=== PATIENT | female | born 1985 | race Caucasian/White ===

== ENCOUNTER 2018-12-12 09:49 | Inpatient (IN) ==
[2018-12-12] MEDS ORDERED: CITRIC ACID/SODIUM CITRATE 30 ML UDCUP PO ONE (11:08)
[2018-12-12] MEDS ORDERED: ceFAZolin 2,000 MG in PREMIX 1 EACH IV ONE (11:08)
[2018-12-12] MEDS ORDERED: OXYTOCIN 10 UNIT/ML VIAL IM ONE (11:10)
[2018-12-12] MEDS ORDERED: OXYTOCIN/LR 30 UNIT/1,000 ML BAG IV ONE (11:11)
[2018-12-12] MEDS ORDERED: FAMOTIDINE 20 MG/2 ML VIAL IV ONE (11:17)
[2018-12-12] MEDS ORDERED: diphenhydrAMINE 50 MG/1 ML VIAL IV PRN (11:17)
[2018-12-12] MEDS ORDERED: hydrOXYzine HCL 25 MG/1 ML VIAL IM PRN (11:17)
[2018-12-12] MEDS ORDERED: ONDANSETRON 4 MG/2 ML VIAL IV ONE (11:17)
[2018-12-12] MEDS ORDERED: LACTATED RINGERS 250 ML IV PRN (11:17)
[2018-12-12] MEDS ORDERED: ePHEDrine 50 MG/ML AMP IV PRN (11:17)
[2018-12-12] MEDS ORDERED: PROMETHAZINE 25 MG/1 ML VIAL IM ONE (11:17)
[2018-12-12 11:19] LABS: Basophils # 0.1 10*3/uL (0.0-0.2); Basophils % 0.6 % (0.0-0.8); Eosinophils # 0.2 10*3/uL (0.0-0.87); Eosinophils % 1.3 % (0.00-10.9); Hematocrit 33.4 VOL% (35.7-47.0); Hemoglobin 10.4 GM/DL (12.0-16.0); Immature Granulocytes Absolute 0.31 #; Lymphocytes # 2.8 10*3/uL (1.4-4.0); Lymphocytes % 18.2 % (21.3-54.2); Mean Corpuscular HGB Conc 31.1 GM/DL (32-36); Mean Corpuscular Volume 64.1 FL (87-102); Mean Platelet Volume 10.2 FL (9.6-12.0); Monocytes % 4.9 % (1.7-12.7); Platelet Count 391 T/CUMM (130-400); Red Blood Count 5.21 MC/CUMM (3.8-5.5); Red Cell Distribution Width 17.6 % (9.3-17.3); White Blood Count 15.6 T/CUMM (4-12)
[2018-12-12] MEDS ORDERED: miSOPROStol 200 MCG TABLET ONE (11:19)
[2018-12-12] MEDS ORDERED: TRANEXAMIC ACID 1,000 MG/10 ML VIAL ONE (11:19)
[2018-12-12] MEDS ORDERED: OXYTOCIN/LR 20 UNIT/1,000 ML BAG IV ONE ×3 (11:19→14:24)
[2018-12-12] MEDS ORDERED: CARBOPROST TROMETHAMINE 250 MCG/ML AMP IM ONE (11:20)
[2018-12-12] MEDS ORDERED: METHYLERGONOVINE 0.2 MG/1 ML AMP ONE (11:20)
[2018-12-12] MEDS ORDERED: LACTATED RINGERS 1,000 ML IV SCH ×3 (11:30→14:30)
[2018-12-12 11:40] LABS: Alanine Aminotransferase 22 U/L (13-56); Albumin 2.8 G/DL (3.4-5.0); Alkaline Phosphatase 220 U/L (45-117); Aspartate Amino Transferase 22 U/L (0-37); Bilirubin,Total < 0.39 MG/DL (0.2-1.0); Blood Urea Nitrogen 7 MG/DL (7-18); Calcium 9.4 MG/DL (8.5-10.1); Glucose 76 MG/DL (74-106); Osmolality,Calculated 271.7 MOS/KG (273-304); Total Protein 7.3 G/DL (6.4-8.3)
[2018-12-12 12:36] LABS: Cord Arterial Blood HCO3 23.6 MMOL/L
[2018-12-12 12:40] LABS: Cord Venous Blood HCO3 23.5 MMOL/L; Cord Venous Blood PCO2 39.7 MMHG; Cord Venous Blood PO2 45.9 MMHG
[2018-12-12] MEDS ORDERED: PHENYLEPHRINE 1 MG/10 ML SYRINGE IV ONE (12:47)
[2018-12-12] MEDS ORDERED: fentaNYL 100 MCG/2 ML VIAL ONE (12:48)
[2018-12-12] MEDS ORDERED: MORPHINE 10 MG/10 ML VIAL ONE (12:48)
[2018-12-12] MEDS ORDERED: BUPIVACAINE 0.5% 50 ML VIAL ONE (12:48)
[2018-12-12] MEDS ORDERED: DEXAMETHASONE 4 MG/1 ML VIAL ONE (12:49)
[2018-12-12 13:01] LABS: Apearance,Urine CLEAR (Clear); Bilirubin,Urine Negative (Negative); Blood, Urine Negative (Negative); Glucose,Urine (UA) Negative (Negative); Ketones,Urine 5 mg/dL (Negative); Mucus,Urine Occasional /LPF (Occasional); Nitrite,Urine Negative (Negative); Protein,Urine Negative; RBC,Urine <1 /HPF (0-4); Squamous Epithelial Cell,Urine Occasional /HPF (0-10); Urine Color Yellow (Yellow); Urine Specific Gravity 1.013 (1.001-1.035); Urine Urobilinogen < 2.0 EU/DL (0.2-1.0); WBC,Urine 1 /HPF (0-6)
[2018-12-12] MEDS ORDERED: SIMETHICONE CHEW 80 MG TABLET PO PRN (14:24)
[2018-12-12] MEDS ORDERED: ACETAMINOPHEN 325 MG TABLET PO PRN (14:24)
[2018-12-12] MEDS ORDERED: ONDANSETRON 4 MG/2 ML VIAL IV PRN (14:24)
[2018-12-12] MEDS ORDERED: RHO(D) IMMUNE GLOBULIN 300 MCG SYRINGE IM ONE (14:24)
[2018-12-12] MEDS ORDERED: oxyCODONE/ACETAMINOPHEN 5-325 MG TABLET PO PRN (14:24)
[2018-12-12] MEDS: DOCUSATE SODIUM 100 MG CAPSULE PO SCH (20:16)
[2018-12-12] MEDS: ceFAZolin 1,000 MG in SYRINGE 1 EACH IV SCH (20:16)
[2018-12-12 21:00] LABS: Basophils # 0.1 10*3/uL (0.0-0.2); Basophils % 0.5 % (0.0-0.8); Hematocrit 28.6 VOL% (35.7-47.0); Hemoglobin 8.8 GM/DL (12.0-16.0); Immature Granulocytes % 1.7 %; Immature Granulocytes Absolute 0.45 #; Lymphocytes # 2.1 10*3/uL (1.4-4.0); Lymphocytes % 8.1 % (21.3-54.2); Mean Corpuscular HGB Conc 30.8 GM/DL (32-36); Mean Corpuscular Volume 64.3 FL (87-102); Monocytes % 4.2 % (1.7-12.7); Neutrophils % 85.5 % (38.7-73.9); Platelet Count 344 T/CUMM (130-400); Red Blood Count 4.45 MC/CUMM (3.8-5.5); Red Cell Distribution Width 17.2 % (9.3-17.3); White Blood Count 26.1 T/CUMM (4-12)
[2018-12-12 21:47] LABS: Band Neutrophils 1 % (0-10); Lymphocytes 10 % (20-55); Microcytosis 2+; Nucleated Red Blood Cells 1 (0-5); Polychromasia Slight; Segmented Neutrophils 85 % (50-85); Total Cells Counted 100
[2018-12-12 21:49] LABS: Hypochromasia Slight
[2018-12-12 21:50] LABS: Ovalocytes Slight; Platelet Estimate Normal; Tear Drop Cells Few
[2018-12-12] MEDS: IBUPROFEN 800 MG TABLET PO PRN (23:00)
[2018-12-13] MEDS: ceFAZolin 1,000 MG in SYRINGE 1 EACH IV SCH (03:40)
[2018-12-13] MEDS: METOCLOPRAMIDE 10 MG TABLET PO PRN ×2 (04:22→20:49)
[2018-12-13] MEDS ORDERED: ALUMINUM/MAGNES/SIMETH MAX STR 30 ML UDCUP PO PRN (04:22)
[2018-12-13 05:14] LABS: Basophils # 0.1 10*3/uL (0.0-0.2); Basophils % 0.4 % (0.0-0.8); Eosinophils # 0.1 10*3/uL (0.0-0.87); Eosinophils % 0.4 % (0.00-10.9); Hematocrit 24.6 VOL% (35.7-47.0); Hemoglobin 7.4 GM/DL (12.0-16.0); Immature Granulocytes % 1.5 %; Immature Granulocytes Absolute 0.28 #; Lymphocytes # 3.1 10*3/uL (1.4-4.0); Lymphocytes % 16.6 % (21.3-54.2); Mean Corpuscular HGB Conc 30.1 GM/DL (32-36); Mean Corpuscular Volume 65.3 FL (87-102); Mean Platelet Volume 10.4 FL (9.6-12.0); Monocytes % 6.4 % (1.7-12.7); Neutrophils % 74.7 % (38.7-73.9); Platelet Count 308 T/CUMM (130-400); Red Blood Count 3.77 MC/CUMM (3.8-5.5); Red Cell Distribution Width 17.1 % (9.3-17.3); White Blood Count 18.6 T/CUMM (4-12)
[2018-12-13] MEDS: IBUPROFEN 800 MG TABLET PO PRN ×2 (08:30→16:17)
[2018-12-13] MEDS: MULTIVITAMIN (PRENATAL) TABLET PO SCH (08:30)
[2018-12-13] MEDS: DOCUSATE SODIUM 100 MG CAPSULE PO SCH ×2 (08:30→20:48)
[2018-12-13] MEDS: FERROUS SULFATE 325 MG TABLET PO SCH ×3 (08:30→20:48)
[2018-12-13] MEDS: MAGNESIUM HYDROXIDE SUSP 30 ML UDCUP PO PRN (08:30)
[2018-12-13] MEDS ORDERED: SODIUM CHLORIDE 0.9% 1,000 ML IV PRN (13:41)
[2018-12-13] MEDS: ACYCLOVIR 800 MG TABLET PO SCH (20:48)
[2018-12-14] MEDS: IBUPROFEN 800 MG TABLET PO PRN ×3 (01:44→23:47)
[2018-12-14 05:10] LABS: Basophils # 0.1 10*3/uL (0.0-0.2); Basophils % 0.6 % (0.0-0.8); Eosinophils # 0.4 10*3/uL (0.0-0.87); Eosinophils % 2.6 % (0.00-10.9); Hematocrit 26.2 VOL% (35.7-47.0); Hemoglobin 8.1 GM/DL (12.0-16.0); Immature Granulocytes % 1.6 %; Immature Granulocytes Absolute 0.23 #; Lymphocytes # 3.4 10*3/uL (1.4-4.0); Lymphocytes % 22.7 % (21.3-54.2); Mean Corpuscular HGB Conc 30.9 GM/DL (32-36); Mean Corpuscular Volume 67.2 FL (87-102); Mean Platelet Volume 10.2 FL (9.6-12.0); Monocytes % 8.2 % (1.7-12.7); Neutrophils % 64.3 % (38.7-73.9); Platelet Count 306 T/CUMM (130-400); Red Cell Distribution Width 19.1 % (9.3-17.3); White Blood Count 14.8 T/CUMM (4-12)
[2018-12-14] MEDS: FERROUS SULFATE 325 MG TABLET PO SCH ×3 (09:55→20:31)
[2018-12-14] MEDS: MULTIVITAMIN (PRENATAL) TABLET PO SCH (09:55)
[2018-12-14] MEDS: DOCUSATE SODIUM 100 MG CAPSULE PO SCH ×2 (09:55→20:32)
[2018-12-14] MEDS: MAGNESIUM HYDROXIDE SUSP 30 ML UDCUP PO PRN (15:33)
[2018-12-14] MEDS: ACYCLOVIR 800 MG TABLET PO SCH (15:43)
[2018-12-14] MEDS: METOCLOPRAMIDE 10 MG TABLET PO PRN (20:32)
[2018-12-15] MEDS: ACYCLOVIR 800 MG TABLET PO SCH (07:59)
[2018-12-15] MEDS: METOCLOPRAMIDE 10 MG TABLET PO PRN (08:59)
[2018-12-15] MEDS: MULTIVITAMIN (PRENATAL) TABLET PO SCH (08:59)
[2018-12-15] MEDS: DOCUSATE SODIUM 100 MG CAPSULE PO SCH (09:00)
[2018-12-15] MEDS: MAGNESIUM HYDROXIDE SUSP 30 ML UDCUP PO PRN (09:00)
[2018-12-15] MEDS: IBUPROFEN 800 MG TABLET PO PRN (09:00)
[2018-12-15] MEDS: FERROUS SULFATE 325 MG TABLET PO SCH (09:00)
[2018-12-15] MEDS ORDERED: DIPH/TET/ACEL PERT BOOSTER VACCINE 0.5 ML VIAL IM ONE (10:20)
[2018-12-15 12:46] VITALS: BP 145/86
== END 2018-12-15 11:10 | disposition home or self-care (01) | DRG 788 ==
LOC: N.LD 09:49 → N.OB 17:31
PROVIDERS: ADMIT Obstetrics & Gynecology; ATTEND Obstetrics & Gynecology
PROC: LDCSECT (ICD-10-PCS; 2018-12-12 12:45)